=== PATIENT | female | born 2005 ===

== ENCOUNTER 2023-10-18 19:07 | Emergency (ER) | payer SELFPAY ==
[2023-10-18 19:12] VITALS: BP 125/84
[2023-10-18 21:10] LABS: % Basophils 0.4 % (0-2); % Eosinophils 0.6 % (0-6); % Immature Granulocytes 0.7 % (0-0.5); % Lymphocytes 25.1 % (20.5-51.1); % Monocytes 7.3 % (1.7-9.3); % Neutrophils 65.9 % (42.2-75.2); Absolute Eosinophils 0.1 10^3/uL (0-0.7); Absolute Immature Granulocytes 0.1 10^3/uL (0-0.05); Absolute Lymphocytes 2.4 10^3/uL (1.2-3.4); Absolute Monocytes 0.7 10^3/uL (0.1-0.6); Absolute Neutrophils 6.2 10^3/uL (1.4-6.5); Hematocrit 37.9 % (37.0-47.0); Hemoglobin 12.9 g/dL (12.0-16.0); Mean Corpuscular Hgb 28.9 pg (27.0-31.0); Mean Platelet Volume 8.2 fL (7.4-10.4); Nucleated Red Blood Cells % 0 %; Platelet Count 425 10^3/uL (130-400); Red Blood Cell Count 4.46 10^6/uL (4.20-5.40); Red Cell Dist. Width 12.9 % (11.5-14.5); White Blood Cell Count 9.4 10^3/uL (4.8-10.8)
[2023-10-18 21:23] LABS: HCG, Serum Qualitative Screen Negative
[2023-10-18 21:29] LABS: ALT (SGPT) 17 U/L (0-35); AST (SGOT) 25 U/L (14-36); Acetaminophen < 10 ug/ml (10-30); Alkaline Phosphatase 72 U/L (38-126); Blood Urea Nitrogen 11 mg/dl (7-17); Calcium 10.3 mg/dl (8.4-10.2); Glucose 130 mg/dl (70-99); Salicylate < 1.0 mg/dl (2.0-20.0); Sodium 137 mmol/L (135-145); Total Bilirubin 0.4 mg/dl (0.2-1.3); Total Protein 7.9 g/dl (6.3-8.2)
[2023-10-18 21:33] LABS: Alcohol None Detected
[2023-10-18 21:43] LABS: Albumin 4.8 g/dl (3.5-5.0); Carbon Dioxide 25 mmol/L (22-30); Chloride 103 mmol/L (98-107); eGFR > 60.00
[2023-10-18] MEDS: MELATONIN 5 MG PO (22:16)
--- NOTE | 2023-10-18 22:16 | ED.GENMED ---
History of Present Illness
General
Chief Complaint: Crisis Evaluation
Source: patient and other (Crisis)
Exam Limitations: none
Time Seen by Provider: 10/18/23 20:44
Nursing documentation reviewed up to this point in time: agreed with
History of Present Illness
History of Present Illness:
Patient sent to ED for medical clearance for inpatient psychiatric care. Manic behavior SHe admits to punching a wall earlier today. Reports pain to her right dorsal hand.
Past History
Past History
ED Past Medical History: Psychiatric
Review of Systems
Review of Systems
Allergies reviewed?: Yes
All Other Systems: ROS reviewed and negative except as documented in HPI and ROS
Constitutional: Reports no symptoms
EENT: Reports no symptoms
Respiratory: Reports no symptoms
Cardiac: Reports no symptoms
ABD/GI: Reports no symptoms
: Reports no symptoms
Musculoskeletal: Reports joint pain (pain to right dorsal hand)
Skin: Reports no symptoms
Neurological: Reports no symptoms
Psychiatric: Reports no symptoms
Phy Exam
General Physical Exam
General Presentation: well appearing and no apparent distress
General age: appears stated age
General Skin: warm and dry
General Habitus: normal
General Mental: alert
Pulmonary Exam
Pulmonary Exam: no respiratory distress
Musculoskeletal Exam
Musculoskeletal Exam: neuro vasc intact
Skin Exam
Skin Exam: normal color, warm/dry and no rash
Psychiatric Exam
Psychiatric Exam: normal mood/affect
Course
Orders/Labs/Results
Orders:
Orders
10/18/23 19:52
Wrist, Right 3 Views [CR Wrist - Right Min 3 Views] Urgent
Comment:
Reason For Exam: punched wall, pain
10/18/23 19:53
Hand, Right 3 View [CR Hand - Right Min 3 Views] Urgent
Comment:
Reason For Exam: punched wall, pain
10/18/23 20:52
Test Result ONCE
10/18/23 21:01
Alcohol Urgent
Complete Blood Count/With Diff Urgent
Comprehensive Metabolic Panel Urgent
HCG, Serum Qualitative Screen Urgent
Salicylate Urgent
Tylenol [Acetaminophen] Urgent
10/18/23 22:08
Melatonin 5 mg PO NOW STA
10/18/23 23:02
Urine Drug Abuse Screen Urgent
Date Specimen was Collected: 10/18/23
Time Specimen was Collected: 20:57
10/19/23 01:32
Lorazepam [Ativan] 1 mg PO NOW STA
Abnormal Lab Results
10/18/23
21:01
Plt Count 425 H 10^3/uL
(130-400)
Abs Immat Gran (auto) 0.1 H 10^3/uL
(0-0.05)
Absolute Monos (auto) 0.7 H 10^3/uL
(0.1-0.6)
Immature Gran % 0.7 H %
(0-0.5)
Glucose 130 H mg/dl
(70-99)
Calcium 10.3 H mg/dl
(8.4-10.2)
Salicylates < 1.0 L mg/dl
(2.0-20.0)
Acetaminophen < 10 L ug/ml
(10-30)
10/18/23 21:01
10/18/23 21:01
Vital Signs
Initial and Last Documented VS:
Initial Vital Signs
Temp Pulse Resp BP Pulse Ox
98.1 F 99 18 125/84 99
10/18/23 19:12 10/18/23 19:12 10/18/23 19:12 10/18/23 19:12 10/18/23 19:12
Last Documented Vital Signs
Temp Pulse Resp BP Pulse Ox
98.1 F 77 16 111/76 99
10/18/23 19:12 10/19/23 02:43 10/19/23 02:43 10/19/23 02:43 10/19/23 02:43
*Radiology
Radiology exam reviewed: radiology read reviewed
*Critical Care Note
Total Time (30-74mins, 75-104mins- exclusive of procedures): Not Applicable
Update Note
Update Note:
Patient is MEDICALLY stable for inpatient psychiatric care.
ED Attending Note
-
Portions of this chart may have been created with voice recognition software.� Occasional wrong word or��sound alike� substitutions may have occurred due to the inherent limitations of voice recognition software.
Discharge Plan
Departure
Patient Disposition: Psych Facility
Date of Disposition: 10/18/23
Time of Disposition: 21:58
Patient with high blood pressure during this ER visit?: No
Condition: Fair
Discharge Problem:
Medical clearance for psychiatric admission, Contusion of hand
Referrals:
UNKNOWN - PT NOT,INTERVIEWE [Family Provider] -
Interventions
Interventions:
*Risk Screen - Suicide Last Done: 10/18/23 19:12
*General Assessment Last Done: 10/18/23 19:12
*Neglect/Abuse Screening Last Done: 10/18/23 19:12
ED- Fall Risk Assessment Last Done: 10/18/23 19:28
*ED COVID-19 Vaccine History Last Done: 10/19/23 02:55
*Nursing Disposition Last Done: 10/19/23 02:55
ED-Psychological Assessment Last Done: 10/18/23 19:28
Discharge Date and Time
Discharge Date/Time: 10/19/23 02:55
Print Language: ICELANDIC
Musculoskeletal Injury Exam
Musculoskeletal Injury Exam
Right Dorsal Hand:
Pain with Movement?: Moderate
Tender to palpation?: Moderate
Soft tissue swelling?: Mild
External deformity and angulation?: None
Joint effusion?: None
Contusion?: Moderate
Hematoma-local bleeding into tissue?: Mild
Strain- Sprain- Tear (Connective tissue injury)?: None
Crepitus with movement?: No
Joint instability?: No
Malalignment/deformity?: No
Range of motion: Full
Distal skin color and temperature: normal-warm & good color
Capillary Refill: normal
Normal distal neurovascular exam?: Yes
[2023-10-18 23:32] LABS: Amphetamines Negative (Negative); Barbiturates Negative (Negative); Benzodiazepines Negative (Negative); Buprenorphine Negative (Negative); Cocaine Negative (Negative); Marijuana Negative (Negative); Methadone Negative (Negative); Methamphetamines Negative (Negative); Opiates Negative (Negative); Phencyclidine Negative (Negative); Tricyclic Antidepressants Negative (Negative)
[2023-10-19] VITALS: BP 110/73
--- NOTE | 2023-10-19 01:34 | ED.CRISIS ---
ED Crisis Note
ED Crisis Note
Subjective:
17-year-old female presents with extreme anxiety. She is pacing around the department sobbing, sitting on the floor. She states that she is extremely anxious. She is requesting marijuana. 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
Objective:
17-year-old female awake, alert, sobbing uncontrollably. No respiratory distress noted. Anxious affect.
Assessment/Plan:
17-year-old female with acute anxious episode. Will get a dose of Ativan. Continue to observe with one-to-one observation
[2023-10-19] MEDS: ATIVAN 1 MG PO (01:52)
[2023-10-19 02:43] VITALS: BP 111/76
== END 2023-10-19 02:55 ==
LOC: EMR 19:07
PROVIDERS: Nurse Practitioner; EMERGENCY PHYSICIAN Emergency Medicine
DX: S60.221A Contusion of right hand, initial encounter (principal); X83.8XXA Intentional self-harm by other specified means, initial encounter; Z02.79 Encounter for issue of other medical certificate; F41.9 Anxiety disorder, unspecified
CPT/HCPCS: 99283; 73110; 73130; 80053; 80143; 80179; 80306; 82077; 84703; 85025